=== PATIENT | female | born 1980 | race Caucasian/White ===

== ENCOUNTER 2016-08-04 12:45 | Inpatient (IN) | payer OTHER ==
[~2016-08-04] VITALS: Ht 156 cm; Wt 71.7 kg
[2016-08-04 13:25] VITALS: BP 111/65
[2016-08-04] MEDS ORDERED: RINGERS SOLUTION,LACTATED 1,000 ML IV PRN (15:33)
[2016-08-04] MEDS ORDERED: RINGERS SOLUTION,LACTATED 1,000 ML IV SCH (15:33)
[2016-08-04] MEDS ORDERED: OXYTOCIN 30 UNITS/LACT RINGERS 500 ML IV ONE (15:33)
[2016-08-04] MEDS ORDERED: CITRIC ACID/SODIUM CITRATE 30 ML SOLUTION UDCUP PO PRN (15:45)
[2016-08-04] MEDS ORDERED: METOCLOPRAMIDE HCL 5 MG/ML 2 ML VIAL IVP PRN (15:45)
[2016-08-04 16:04] LABS: BASOPHILS % (AUTO) 0.5 % (0.0-2.0); EOSINOPHILS % (AUTO) 0.8 % (1.0-6.0); HEMATOCRIT 33.6 % (36-46); HEMOGLOBIN 10.8 g/dL (12.0-16.0); LYMPHOCYTES # (AUTO) 2.1 K/uL (1.0-4.8); LYMPHOCYTES % (AUTO) 20.1 % (22.0-44.0); MEAN CORPUSCULAR HGB CONC 32.2 G/dL (31.0-37.0); MEAN CORPUSCULAR VOLUME 77 fL (80-100); MONOCYTES # (AUTO) 0.7 K/uL (0.1-1.0); NEUTROPHILS # (AUTO) 7.6 K/uL (1.8-7.7); NEUTROPHILS % (AUTO) 71.6 % (40.0-70.0); RED BLOOD CELL COUNT(AUTO) 4.33 MIL/uL (4.00-5.20); RED CELL DISTRIBUTION WIDTH 16.8 % (11.5-14.5); WHITE BLOOD COUNT (AUTO) 10.6 K/uL (4.5-11.0)
[2016-08-04] MEDS: RINGERS SOLUTION,LACTATED 1,000 ML IV SCH ×2 (16:25→21:23)
[2016-08-04] MEDS: MISOPROSTOL 25 MCG TABLET VG SCH ×2 (16:46→21:42)
[2016-08-04] MEDS ORDERED: AMPICILLIN SODIUM 2 GM/NS 100 ML IV ONE (17:45)
[2016-08-04 17:46] VITALS: BP 111/65
[2016-08-04] MEDS: OXYGEN THERAPY IH SCH (20:00)
[2016-08-04] MEDS: AMPICILLIN SODIUM 1 GM/NS 50 ML IV SCH (21:39)
[2016-08-04] MEDS: FentaNYL CITRATE-PF 100 MCG/2 ML VIAL IVP PRN (23:59)
[2016-08-05] MEDS: FentaNYL CITRATE-PF 100 MCG/2 ML VIAL IVP PRN ×5 (00:04→13:21)
[2016-08-05] MEDS: AMPICILLIN SODIUM 1 GM/NS 50 ML IV SCH ×4 (01:52→14:17)
[2016-08-05] MEDS: RINGERS SOLUTION,LACTATED 1,000 ML IV SCH ×2 (06:07→12:05)
[2016-08-05] MEDS: MISOPROSTOL 25 MCG TABLET VG SCH ×2 (06:07→10:09)
[2016-08-05] MEDS ORDERED: PHENYLEPHRINE HCL 10 MG/ML VIAL IVP ONE (12:00)
[2016-08-05] MEDS ORDERED: DiphenhydrAMINE HCL 50 MG/ML VIAL IVP ONE (12:00)
[2016-08-05] MEDS ORDERED: ONDANSETRON HCL 4 MG/2 ML VIAL IVP ONE (12:00)
[2016-08-05] MEDS ORDERED: OXYTOCIN 10 UNITS/ML VIAL IM ONE (12:00)
[2016-08-05] MEDS ORDERED: METHYLERGONOVINE MALEATE 0.2 MG/ML VIAL IM ONE (12:00)
[2016-08-05] MEDS ORDERED: EPHEDrine SULFATE 50 MG/ML VIAL IM ONE (12:00)
[2016-08-05] MEDS ORDERED: 0.9% SODIUM CHLORIDE 10 ML VIAL IVP ONE (12:00)
[2016-08-05] MEDS ORDERED: OXYTOCIN 30 UNITS/LACT RINGERS 500 ML IV PRN (14:09)
[2016-08-05] MEDS ORDERED: OXYTOCIN 30 UNITS/LACT RINGERS 500 ML IV ONE (14:13)
[2016-08-05] MEDS ORDERED: FentaNYL/BUPIV 0.125%/NS/PF 200 ML ED PRN (15:36)
[2016-08-05] MEDS ORDERED: FentaNYL/BUPIV 0.125%/NS/PF 200 ML ED ONE (15:43)
[2016-08-05] MEDS ORDERED: BUPIVACAINE HCL/PF 0.25% 10 ML VIAL ONE (15:43)
[2016-08-05] MEDS ORDERED: DiphenhydrAMINE HCL 50 MG/ML VIAL IVP PRN ×3 (15:45→20:00)
[2016-08-05] MEDS ORDERED: ONDANSETRON HCL 4 MG/2 ML VIAL IVP PRN ×3 (15:45→20:00)
[2016-08-05] MEDS ORDERED: NALBUPHINE HCL 10 MG/ML VIAL IVP PRN ×4 (15:45→20:00)
[2016-08-05] MEDS ORDERED: MORPHINE SULFATE/PF 0.5 MG/ML 10 ML AMP ONE (17:46)
[2016-08-05] MEDS ORDERED: RINGERS SOLUTION,LACTATED 1,000 ML IV ONE (17:46)
[2016-08-05] MEDS ORDERED: CeFAZolin 2 GM/DEXTROSE 50 ML IV ONE (17:46)
[2016-08-05] MEDS ORDERED: FentaNYL CITRATE-PF 100 MCG/2 ML VIAL ONE (17:46)
[2016-08-05] MEDS ORDERED: LIDOCAINE HCL 2%/EPI 1:200,000/PF 10 ML VIAL ONE (17:52)
[2016-08-05] MEDS ORDERED: OxyCODONE HCL/ACETAMINOPHEN 5-325 MG TABLET PO PRN (19:00)
[2016-08-05] MEDS ORDERED: LANOLIN 7 GM OINTMENT TP PRN (19:00)
[2016-08-05] MEDS ORDERED: METHYLERGONOVINE MALEATE 0.2 MG TABLET PO PRN (19:00)
[2016-08-05] MEDS ORDERED: DEXTROSE 5%-LACTATED RINGERS 1,000 ML IV ONE (19:36)
[2016-08-05] MEDS: DEXTROSE 5%-LACTATED RINGERS 1,000 ML IV SCH (19:36)
[2016-08-05] MEDS ORDERED: KETOROLAC TROMETHAMINE 30 MG/ML VIAL IVP PRN (20:00)
[2016-08-05] MEDS ORDERED: MEPERIDINE-PF 25 MG/ML SYRINGE IVP PRN (20:00)
[2016-08-05] MEDS ORDERED: DEXAMETHASONE SOD PHOS 4 MG/ML VIAL IVP PRN (20:00)
[2016-08-05] MEDS ORDERED: KETOROLAC TROMETHAMINE 30 MG/ML VIAL IVP ONE (20:00)
[2016-08-05] MEDS ORDERED: OXYGEN THERAPY IH SCH ×4 (20:00)
[2016-08-05] MEDS ORDERED: FentaNYL CITRATE-PF 100 MCG/2 ML VIAL IVP PRN ×4 (20:00)
[2016-08-05] MEDS ORDERED: NALOXONE HCL 0.4 MG/ML VIAL IVP PRN (20:00)
[2016-08-05] MEDS ORDERED: MORPHINE SULFATE 10 MG/ML SYRINGE IVP PRN (20:00)
[2016-08-05] MEDS ORDERED: KETOROLAC TROMETHAMINE 30 MG/ML VIAL ONE (20:05)
[2016-08-05] MEDS: ACETAMINOPHEN 1000 MG/ISO-OSM 100 ML IV PRN (22:49)
[2016-08-06] MEDS: CeFAZolin 2 GM/DEXTROSE 50 ML IV SCH ×2 (02:26→10:17)
[2016-08-06] MEDS: DEXTROSE 5%-LACTATED RINGERS 1,000 ML IV SCH ×2 (03:06→10:22)
[2016-08-06 05:52] LABS: BASOPHILS # (AUTO) 0.03 K/uL (0.00-0.20); BASOPHILS % (AUTO) 0.2 % (0.0-2.0); EOSINOPHILS # (AUTO) 0.02 K/uL (0.00-0.70); EOSINOPHILS % (AUTO) 0.19 % (1.0-6.0); HEMOGLOBIN 8.3 g/dL (12.0-16.0); LYMPHOCYTES # (AUTO) 1.7 K/uL (1.0-4.8); LYMPHOCYTES % (AUTO) 13.8 % (22.0-44.0); MEAN CORPUSCULAR HEMOGLOBIN 24.9 pg (26.0-34.0); MEAN CORPUSCULAR VOLUME 78 fL (80-100); MONOCYTES # (AUTO) 0.7 K/uL (0.1-1.0); NEUTROPHILS # (AUTO) 9.5 K/uL (1.8-7.7); NEUTROPHILS % (AUTO) 79.7 % (40.0-70.0); RED BLOOD CELL COUNT(AUTO) 3.35 MIL/uL (4.00-5.20); RED CELL DISTRIBUTION WIDTH 17.2 % (11.5-14.5); WHITE BLOOD COUNT (AUTO) 11.9 K/uL (4.5-11.0)
[2016-08-06 09:53] LABS: RBC MORPHOLOGY COMMENT ABNORMAL RBC MORPH
[2016-08-06] MEDS: MAGNESIUM HYDROXIDE SUSPENSION 30 ML UDCUP PO PRN (10:16)
[2016-08-06] MEDS: SENNA/DOCUSATE SODIUM 187-50 MG TABLET PO PRN ×2 (10:16→22:41)
[2016-08-06] MEDS: OXYGEN THERAPY IH SCH (13:51)
[2016-08-06] MEDS: ACETAMINOPHEN 1000 MG/ISO-OSM 100 ML IV PRN (14:34)
[2016-08-06] MEDS: IBUPROFEN 800 MG TABLET PO PRN (18:32)
[2016-08-06] MEDS: OxyCODONE HCL/ACETAMINOPHEN 5-325 MG TABLET PO PRN (22:41)
[2016-08-07] MEDS: IBUPROFEN 800 MG TABLET PO PRN ×3 (00:23→12:26)
[2016-08-07] MEDS: OxyCODONE HCL/ACETAMINOPHEN 5-325 MG TABLET PO PRN ×2 (04:05→08:05)
[2016-08-07] MEDS: SENNA/DOCUSATE SODIUM 187-50 MG TABLET PO PRN (08:38)
[2016-08-07] MEDS: MAGNESIUM HYDROXIDE SUSPENSION 30 ML UDCUP PO PRN (08:38)
[2016-08-07] MEDS ORDERED: HYDR-309 PO (09:42)
[2016-08-07] MEDS ORDERED: FERR-89 PO (09:44)
[2016-08-07] MEDS ORDERED: DSS100 PO (09:46)
== END 2016-08-07 18:15 | disposition home or self-care (01) | DRG 766 ==
LOC: 4S 12:45 → OBSVTOIN 12:45 → 4S 08-05 23:27
PROVIDERS: ADMIT Specialist; ATTEND Specialist
PROC: 10D00Z1 Extraction of Products of Conception, Low, Open Approach (ICD-10-PCS; principal; 2016-08-05)
PROC: 3E0P7GC Introduction of Other Therapeutic Substance into Female Reproductive, Via Natural or Artificial Opening (ICD-10-PCS; 2016-08-05)
DX: O76 Abnormality in fetal heart rate and rhythm complicating labor and delivery (principal); O99.824 Streptococcus B carrier state complicating childbirth; O09.523 Supervision of elderly multigravida, third trimester; Z3A.39 39 weeks gestation of pregnancy; Z37.0 Single live birth
CPT/HCPCS: 76805; J0131; J0290; J0690; J1200; J1885; J2210; J2274; J2370; J2405; J2590; J2765; J3010; J3490; J7120